=== PATIENT | female | born 1975 | race Caucasian/White ===

== ENCOUNTER 2024-07-07 08:29 | Outpatient (CLI) | payer OTHER, SELFPAY ==
--- NOTE | ~2024-07-07 | XR_ITS ---
EXAMINATION: XR toe 4th RT min 2V DATE: 07/07/2024 08:51 INDICATION: Right fourth toe injury. TECHNIQUE: 3 views of right fourth toe were obtained. COMPARISON: None. FINDINGS: There is an avulsion fracture of dorsal base of fourth distal phalanx in near-anatomic alig nment. Joint spaces are normal. IMPRESSION: 1. Avulsion fracture of dorsal base of fourth distal phalanx. Reviewed, dictated and finalized at location A. IC UTILITIES SALES REPRESENTATIVE
--- OUTSIDE RECORDS SUMMARY | 2024-07-07 08:40 | XMS_ITS | Clinical Summary ---
Author Organization [facility] Address [address] [place] [address] Care Team Providers Care Ball Sorter Name Role Phone Unavailable Primary Care Provider Unavailabl e Source Comments [facility],non-owned Affiliates and Associated Physician Practices is amultiple site organization consisting of ambulatory clinics and hospital sitesin [place], [place], [place] and [place]. This disclosure is being madepursuant to the Care Everywhere program and may not contain all information available regarding this patient. Last updated 18.[facility] [employer] Active Problems Problem Noted Date Diagnosed Date Advanced maternal age (AMA) in 014 Choroid plexus cyst 02/21/2014 Supervision of other high-risk 014 Overview (04/08/2015): Family History Medical History Relation Name Comments Blood Clots Father Hypertension Father Congenital Heart defect Other firs t cousin once removed Relation Name Status Comments Father Other Social History Tobacco Use Types Packs/Day Years Used Date Smoking Tobacco: Never Smokeless Tobacco: Never Alcohol Use Standard Drinks/Week Comments No 0 (1 standard drink = 0.6 oz pur e alcohol) Sex and Gender Information Value Date Recorded Sex Assigned at Not on file Gender Identity Not on file Sexual Orientation Not on file Last Filed Vital Signs Vital Sign Reading Time Taken Comments Blood Pressure - - Pulse 76 02/21/2014 5:11 PM CDT Temperature - - Respiratory Rate 16 02/21/2014 5:11 PM CDT Oxygen Saturation - - Inhaled Oxygen Concentration - - Weight - - Height - - Body Mass Index - - Plan of Treatment Health Maintenance Due Date Last Done Comments COLOGUARD (AGES 45-75) - COL ON CA SCREENING 1977 COLON MONITORING 1977 COLONOSCOPY - COLON CA SCREENING 1977 CT COLONOGRAPHY - COLON CA SCREENING 1975 Colorectal Cancer Screening 1975 FIT - COLON CA SCREENING 1977 FLEX SIG - COLON CA SCREENING 1977 LIPID TESTING 1975 MAMMOGRAM 1977 PAP SMEAR 1977 HIV SCREENING 01/25/1992 HEPATITIS C SCREENING 01/20/1995 DTAP/TDAP/TD VACCINES (1 - Tdap) 01/25/1996 HEPATITIS B VACCINE (1 of 3 - 19+ 3-dose series) 01/25/1996 COVID-19 VACCINE (1 - 2023-2 5 season) 2024 INFLUENZA VACCINE (#1) 2024 DEPRESSION SCREENING 06/01/2024 ZOSTER VACCINE (1 of 2) 2027 HIB VACCINE Aged Out No longer eligi ble based on patient's age to complete this topic HPV VACCINE Aged Out No longer eligi ble based on patient's age to complete this topic MENINGOCOCCAL (Group B) VACCINE Aged Out No longer eligible based on patient's age to complete this topic MENINGOCOCCAL VACCINE Aged Out No du gee eligible based on patient's age to complete this topic PNEUMOCOCCAL VACCINE Aged Out No long er eligible based on patient's age to complete this topic
--- OUTSIDE RECORDS SUMMARY | 2024-07-07 08:40 | XMS_ITS | Encounter Summary ---
Author Organization [facility] Facility Care Team Providers Care Dulite Machine Bluer Name Role Phone Kiel Barillas MD Primary Care Provid er Encounter Details Date Type Department Care Team (Latest Contact Info) Description 07/01/2017 Orders Only [facility] CLINCONV ProviderJodi MD [address] [place] [address] Social History Tobacco Use Types Packs/Day Years Used Date Smoking Tobacco: Never Comments Unknown Sex and Gender Information Value Date Recorded Sex Assigned at Not on file Legal Sex Female 12:31 AM MANAGER BACKGROUND Gender Identity Not on file Sexual Orientation Not on file documented as of this encounter Plan of Treatment Not on file documented as of this encounter Procedures Procedure Name Priority Date/Time Associated Diagnosis Comments SCAN - LABS 07/01/2017 12:00 AM MANAGER BACKGROUND documented in this encounter Results * SCAN - LABS (07/01/2017 12:00 AM MANAGER BACKGROUND) Narrative 07/01/2017 12:00 AM MANAGER BACKGROUND Ordered by an unspecified provider. Historical Provider Final Res ult documented in this encounter Visit Diagnoses Not on filedocumented in this encounter Additional Health Concerns Infection Onset Date Last Indicated Resolved Time C. difficile Comment:Backloaded March 20, 2011 06/26/2005 06/26/2005 COVID: Suspected 04/29/2023 04/29/2023 04/29/2023 3:59 PM MANAGER BACKGROUND COVID: Suspected 09/01/2023 09/01/2023 09/01/2023 4:16 PM CDT documented as of this encounter Care Teams Dulite Machine Bluer Relationship Specialty Start Date End Date Kiel Barillas MD [address] [place] [address] PCP - General 06/01/17 documented as of this encounter
--- OUTSIDE RECORDS SUMMARY | 2024-07-07 08:40 | XMS_ITS | Encounter Summary ---
Author Organization [facility] Facility Care Team Providers Care Radial Drill Press Operator Name Role Phone Unknown, Notinfile Primary Care Provider Unavail able Kiel Barillas MD Primary Care Provid er Kiel Barillas MD Primary Care Provid er Encounter Details Date Type Department Care Team (Latest Contact Info) Description 06/14/2015 Orders Only [facility] CLINCONV ProviderJodi MD [address] [place] [address] Social History Tobacco Use Types Packs/Day Years Used Date Smoking Tobacco: Never Comments Unknown Sex and Gender Information Value Date Recorded Sex Assigned at Not on file Legal Sex Female 12:31 AM TRACK REPAIR SUPERVISOR Gender Identity Not on file Sexual Orientation Not on file documented as of this encounter Plan of Treatment Not on file documented as of this encounter Procedures Procedure Name Priority Date/Time Associated Diagnosis Comments SCAN - PATHOLOGY 06/20/2015 12:0 0 AM TRACK REPAIR SUPERVISOR documented in this encounter Results * SCAN - PATHOLOGY (06/20/2015 12:00 AM TRACK REPAIR SUPERVISOR) Narrative 06/20/2015 12:00 AM TRACK REPAIR SUPERVISOR Ordered by an unspecified provider. Historical Provider Final Res ult documented in this encounter Visit Diagnoses Not on filedocumented in this encounter Additional Health Concerns Infection Onset Date Last Indicated Resolved Time C. difficile Comment:Backloaded March 20, 2011 06/26/2005 06/26/2005 COVID: Suspected 04/29/2023 04/29/2023 04/29/2023 3:59 PM TRACK REPAIR SUPERVISOR COVID: Suspected 09/01/2023 09/01/2023 09/01/2023 4:16 PM CDT documented as of this encounter Care Teams Radial Drill Press Operator Relationship Specialty Start Date End Date Unknown, Notinfile PCP - General 02/17/17 02/26/17 Kiel Barillas MD [address] [place] [address] PCP - General 06/01/17 Kiel Barillas MD [address] [place] [address] PCP - General 02/27/17 05/31/17 documented as of this encounter
--- OUTSIDE RECORDS SUMMARY | 2024-07-07 08:40 | XMS_ITS | Referral Summary ---
Author Organization [facility] Address [address] [place] [id number] Care Team Providers Care Inbound Sales Consultant Name Role Phone Kiel Barillas MD Primary Care Provid er Encounters Date Type Department Care Team Description 07/06/2024 Orders Only [address] [phone] Kiel Barillas MD Injury of toe on right foot, initial encounter (Primary Dx) 07/06/[address] [phone] Kiel Barillas MD Symptom Based Call 07/01/2024 2:00 PM RESEARCH AGRICULTURAL ENGINEER - 07/01/2024 11:59 PM RESEARCH AGRICULTURAL ENGINEER Hospital Encounter [facility] Breast Imaging [facility] ([facility]) [address] [place] [id number] Well woman exam Discharge Disposition: Discharge to home or self care 05/05/2024 10:45 AM RESEARCH AGRICULTURAL ENGINEER Office Visit [address] [phone] Kiel Barillas MD Acute non-recurrent frontal sinusitis (Primary Dx); Subacute cough from Last 3 Months Allergies Active Allergy Reactions Criticality Noted Date Comments Hydrocodone-Acetaminophen Rash Medium 01/19/2019 rash Other Itching,Rash Medium 03/16/2020 Itching with epidural Medications hb-tm-leto-FA-Ca carb-vit K 18 mg iron-400 mcg-500 mg tablet Take by mouth Active albuterol HFA (PROVENTIL HFA,VENTOLIN HFA,PROAIR HFA) 90 mcg/actuation inhalerIndication s:Acute cough Inhale 2 puffs every 6 (six) hours as needed for wheezing 1 each 5 3 Active Additional Information Patient not taking.Reported on 05/05/2024 ALPRAZolam (XANAX) 0.5 mg tablet Take 1 tablet (0.5 mg total) by mouth 3 (three) times a day as needed for anxiety 45 tablet [address] (PROTONIX) 40 mg EC tabletIndications :Abdominal pain Take 1 tablet (40 mg total) by mouth 2 (two) times a day for 14 days 28 tablet 4 Active Additional Information Patient not taking.Reported on 05/05/2024 desogestreL-ethin yl estradioL (Isibloom) 0.15-0.03 mg per tabletIndications :Oral contraceptive pill surveillance Take 1 tablet by mouth daily 28 tablet 12 4 Active predniSONE (DELTASONE) 20 mg tabletIndications :Subacute cough,Acute non-recurrent frontal sinusitis TAKE 3 TABLETS BY MOUTH DAILY FOR 5 DAYS 4 Active clarithromycin (BIAXIN) 500 mg tabletIndications :Subacute cough,Acute non-recurrent frontal sinusitis Take 1 tablet (500 mg total) by mouth 2 (two) times a day 20 tablet 1 4 Active Active Problems Problem Noted Date Diagnosed Date Dense breasts 09/16/2021 Oral contraceptive pill surveillance 03/15/2019 Female infertility 10/06/2013 Immunizations Name Administration Dates Next Due Influenza, Quadrivalent, Leilani l Culture-based MDCK, Preservative Free, Antibiotic Free, Intramuscular 03/26/2022,03/15/2020 Influenza, Quadrivalent, Spl it, Intramuscular 04/24/2019 Influenza, Quadrivalent, Spl it, Preservative Free, Intramuscular 04/25/2023,04/19/2021,04/24/2019,03/08 Influenza, Trivalent, Preser vative Free, Intramuscular 02/25/2017,04/12/2015,05/03/2014 Influenza, Unspecified 03/26/2022(Deferr ed: Patient Refused),03/19/2021(Deferred: Patient Refused),04/24/2019 MMR 01/18/2020 Moderna SARS-CoV-2 Monovalen t Vaccination (12+ YRS) 09/04/2020,08/07/2020 Tdap 11/11/2017,05/03/2014 Social History Tobacco Use Types Packs/Day Years Used Date Smoking Tobacco: Never Smokeless Tobacco: Never Tobacco Cessation:Counseling Given: Not Answered Alcohol Use Standard Drinks/Week Comments Not Currently 0 (1 standard drink = 0.6 oz pur e alcohol) AUDIT-C Answer Date Recorded Q1: How often do you have a drink containing alc ohol? 2-4 times a month 09/25/2021 Q2: How many drinks containi ng alcohol do you have on a typical day when you are drinking? 1 or 2 09/25/2021 Q3: How often do you have si x or more drinks on one occasion? Never 09/25/2021 PHQ-2 Answer Date Recorded PHQ-2 Total Score (If total score is 3 or more points, staff should administer the PHQ-9) 0 09/01/2023 Comments No Sex and Gender Information Value Date Recorded Sex Assigned at Not on file Legal Sex Female 12:31 AM RESEARCH AGRICULTURAL ENGINEER Gender Identity Not on file Sexual Orientation Not on file Last Filed Vital Signs Vital Sign Reading Time Taken Comments Blood Pressure 124/82 05/05/2024 10:48 AM RESEARCH AGRICULTURAL ENGINEER Pulse 83 05/05/2024 10:48 AM RESEARCH AGRICULTURAL ENGINEER Temperature 36.9 C (98.4 F) 05/05/2024 10:48 AM RESEARCH AGRICULTURAL ENGINEER Respiratory Rate 20 05/05/2024 10:48 AM RESEARCH AGRICULTURAL ENGINEER Oxygen Saturation 99% 05/05/2024 10:48 AM RESEARCH AGRICULTURAL ENGINEER Inhaled Oxygen Concentration - - Weight 60.3 kg (133 lb) 05/05/2024 10:48 AM RESEARCH AGRICULTURAL ENGINEER Height 170.2 cm (5' 7 ) 05/05/2024 10:48 AM RESEARCH AGRICULTURAL ENGINEER Body Mass Index 20.83 05/05/2024 10:48 AM RESEARCH AGRICULTURAL ENGINEER Plan of Treatment Not on file Procedures Procedure Name Priority Date/Time Associated Diagnosis Comments SCREENING MAMMOGRAM BILATERAL W CARLOS ALBERTO Schedule Routine, Read Routine (OP Routine) 07/01/2024 2:34 PM RESEARCH AGRICULTURAL ENGINEER Well woman exam HIGH RISK HPV DNA DETECTION WITH GENOTYPING Routine 10/19/2023 4:23 PM CDT Well woman exam HEPATITIS C ANTIBODY Routine 05/14/2017 4:31 PM RESEARCH AGRICULTURAL ENGINEER COLONOSCOPY Routine 05/01/2010 from Last 3 Months or Most Recently Relevant to Health Maintenance Results * Screening Mammogram Bilateral W Carlos Alberto (07/01/2024 2:34 PM RESEARCH AGRICULTURAL ENGINEER) Anatomical Region Laterality Modality Breast Bilateral Mammography Narrative 07/04/2024 11:48 AM RESEARCH AGRICULTURAL ENGINEER Mammogram Technique: Bilateral Digital Breast Tomosynthesis, Bilateral C-view 2D Screening mammogram. Views obtained: bilateral craniocaudal and bilateral mediolateral oblique. Computer Aided Detection was performed. Mammogram Findings: The present examination has been compared to prior imaging studies performed at [facility] on 03/13/2022, 03/18/2022 and 05/21/2023. The breasts are heterogeneously dense, which may obscure small masses. There are multiple masses in both breasts. There is no suspicious abnormality in either breast. Impression: There is no mammographic evidence of malignancy. Annual screening mammography is recommended. If supplemental screening is desired, breast MRI would be recommended in this patient with heterogeneously dense breasts. OVERALL FINAL ASSESSMENT: BI-RADS CATEGORY 2: Benign. Procedure Note Tonja Mohan MD - 07/04/2024 Mammogram Technique: Bilateral Digital Breast Tomosynthesis, Bilateral C-view 2D Screening mammogram. Views obtained: bilateral craniocaudal and bilateral mediolateral oblique. Computer Aided Detection was performed. Mammogram Findings: The present examination has been compared to prior imaging studies performed at [facility] on 03/13/2022, 03/18/2022 and 05/21/2023. The breasts are heterogeneously dense, which may obscure small masses. There are multiple masses in both breasts. There is no suspicious abnormality in either breast. Impression: There is no mammographic evidence of malignancy. Annual screening mammography is recommended. If supplemental screeningis desired, breast MRI would be recommended in this patient with heterogeneously dense breasts. OVERALL FINAL ASSESSMENT: BI-RADS CATEGORY 2: Benign. Jeanne Negro MD IMG MAMMO PROCEDURES Shayna l Result * High Risk HPV DNA Detection with Genotyping (Molecular component) (10/19/2023 4:23 PM CDT) HPV HR [address] [facility] Comment:Testing performed by : [facility], [address] [place]., [address] HPV HR 18 Not Detected Not Detected [facility] Comment:Testing performed by : [facility], [address] [place]., [address] HPV HR Non 16/18 Not Detected Not Detected [facility] Comment: Interpretive Data Nucleic acid amplification for detection of high-risk Human Papilloma virus (HPV) is performed by the Javed Kandace 6800 HPV test. This assay specifically detects HPV-16 and HPV-18 genotypes. The following HPV genotypes are detected as high-risk HPV: HPV-31, 33, 35, ,39, 45, 51, 52, 56, 58, 59, 66, and 68. This assay has been approved by the [place] Food and Drug Administration for detection of HPV in cervical specimens collected by a physician using an endocervical brush/spatula or cervical broom and placed in the ThinPrep Pap Test PreservCyt collection containers. The performance characteristics of this test have been verified by the [facility] Molecular Infectious Disease laboratory. Correlate with separately reported cytology results, as applicable. Interpretive data last revised 22 Testing performed by: [facility], [address] [place]., [address] Endocervical 10/19/2023 4:23 PM CDT 10/19/2023 10:51 PM CDT Narrative [facility] - 10/20/2023 6:24 PM CDT Clinical history and diagnosis->screening Testing type->Screening Last menstrual period (date if known)->10/14/23 Jeanne Negro MD LAB BODY FLUIDS AND STOOL S ORDERABLES Final Result Performing Organization Address City/State/[facility] de Phone Number [facility] [address] [facility] Department [place] [address] [facility] * Hepatitis C antibody (05/14/2017 4:31 PM RESEARCH AGRICULTURAL ENGINEER) Hep C Ab NONREACT NONREACTIVE 05/14/2017 8:05 PM RESEARCH AGRICULTURAL ENGINEER [facility] HISTORICAL RESULTS Comment: [employer] using PORTER (chemiluminescent immunoassay) technology. NONREACTIVE: Antibodies to Hepatitis C not detected. This does not exclude early acute Hepatitis C infection, possibility of exposure to Hepatitis C, antibodies below detection limit, or to lack of antibody reactivity to the antigen used in this assay. EQUIVOCAL: Antibodies to Hepatitis C may or may not be present. Sample to be confirmed by real-time PCR method. REACTIVE: Antibodies to Hepatitis C detected. 05/14/2017 4:31 PM RESEARCH AGRICULTURAL ENGINEER 05/14/2017 5:28 PM RESEARCH AGRICULTURAL ENGINEER Hugo Pyle MD LAB MICROBIOLOGY - GENERAL ORDERABLES Final Result Performing Organization Address [facility] de Phone Number [facility] HISTORICAL RESULTS * Colonoscopy (05/01/2010) Anatomical Region Laterality Modality Other Historical Provider ENDOSCOPY PROCEDURES Shayna l Result from Last 3 Months or Most Recently Relevant to Health Maintenance Additional Health Concerns Infection Onset Date Last Indicated C. difficile Comment:Backloaded March 20, 2011 06/26/2005 06/26/2005 Insurance [facility] H[facility]/PPO Address: [address] [address] [place] [address] [facility] HMO/PPO Address: [address] [address] [place] [address] [facility] HMO/PPO Address: [id number] [place] [id number] Care Teams Inbound Sales Consultant Relationship Specialty Start Date End Date Kiel Barillas MD [address] [place] [address] PCP - General 06/01/17
--- OUTSIDE RECORDS SUMMARY | 2024-07-07 08:40 | XMS_ITS | Patient Health Summary ---
Author Organization [facility] Address [address] [place] [address] Care Team Providers Care Player Manager Name Role Phone Unavailable Primary Care Provider Unavailabl e Note from [facility],non-owned Affiliates and Associated Physician Practices is amultiple site organization consisting of ambulatory clinics and hospital sitesin [place], [place], [place] and [place]. This disclosure is being madepursuant to the Care Everywhere program and may not contain all information available regarding this patient. Last updated 18.[facility] Active Problems Problem Noted Date Diagnosed Date Advanced maternal age (AMA) in 014 Choroid plexus cyst 02/21/2014 Supervision of other high-risk 014 Social History Tobacco Use Types Packs/Day Years [...] - - Body Mass Index - - Procedures * SONOGRAM - COMPLETE(Performed 02/21/2014) Performed for Choroid plexus cyst of fetus on ultrasound * CYTOGENETICS PANEL(Performed 09/30/2012) Performed for Molar [ICD-9-CM] * CYTOGENETICS PANEL(Performed 09/30/2012) Performed for Molar [ICD-9-CM] Results * SONOGRAM - COMPLETE (02/21/2014 3:15 PM CDT) Anatomical Region Laterality Modality Other 02/21/2014 3:15 PM CDT Narrative 02/21/2014 5:16 PM CDT [facility] PHONE: FAX: Pat. Name: ALONDRA GEIGER Pat. No: [id number] Study Date: 02/21/2014 3:15pm , Age: 08 1975, 39 Pregnancies: 2, Para 0 LMP: Unknown GA by US: 19w6d GA Selected: 19w4d (From Known E) JOSH: 07/14/2014 Referring MD: HUGO JONES MD Transportation Security Screener: Kim Salinas RDMS ICD9: 659.53, 655.03 CPT4: 55774 Hist/Ind: Advanced maternal age, primigravida Choroid Plexus Cyst MEASUREMENTS & AGE GROWTH EVALUATION Measurement GA Range Srce %for GA Ratios ----- ---- ------- BPD 4.6 cm 20w0d (59g7m-90l8w) Hadl BPD 61% FL/BPD 0.70 HC 16.8 cm 19w3d (79t9g-84s0k) Hadl HC 47% FL/AC 0.22 AC 14.8 cm 20w0d (77g5c-83u9s) Hadl AC 60% HC/AC 1.14 (1.06 - 1.25) FL 3.2 cm 20w1d (47l0q-65h3x) Hadl FL 63% CI 0.77 (0.70 - 0.86) GA for sonogram 19w6d (62e6b-59q8t) Weight Estimate: based on (BPD,HC,AC,FL) Avg Weight: 326 gm (279-374) Hadlock : 0lbs, 11oz Normal: 306 gm (230-383) Hadlock Wt% 62% for 19w4d Heart Rate: 145 bpm CLINICAL SUMMARY Study Number: 1 A dangelo fetus is identified in breech presentation. The measurements today are consistent with appropriate growth for JOSH provided. The JOSH selected is based on prior ultrasound examination. The amniotic fluid volume is within normal limits. The placenta is anterior with no evidence for placenta previa. No major malformations are seen. A choroid plexus cyst is noted on the left. The right choroid plexus appears unremarkable. The likelihood of trisomy 18 with isolated choroid plexus cysts is 13.8 times greater than a priori risk. The patient was advised that ultrasound does not allow detection of all structural or chromosomal abnormalities. Blood was drawn for NIPT after a MFM consult was provided. IMPRESSION: Dangelo IUP at 19w4d Normal amniotic fluid volume. Appropriate growth. Placental location: Anterior, with no evidence for placenta previa No major malformations are seen today within the limitations of ultrasound. There is a left choroid plexus cyst RECOMMEND: Follow up ultrasound in 8 weeks to reassess choroid plexus cyst. and growth Thank you for allowing us the opportunity to care for your patient. Aditya Duarte MD <Electronic Signature> 02/21/2014 05:08pm Provider Unknown M ORDERABLES * CYTOGENETICS PANEL (09/30/2012 6:10 PM CDT) Only the most recent of2 resultswithin the time period is included. Indication for Study Thickened Cystic Heterogeneous EMC / Suspect Molar 10/14/2012 1:03 PM CDT [facility] Results Cytogenetics Analysis of 5 cells and count of 20 cells (4 cells karyotyped, GTL-banding) from maternal stimulated peripheral blood cultures showed a 46,XX chromosome pattern. 10/14/2012 1:03 PM CDT [facility] Interpretation Maternal female chromosome analysis showing 46,XX with no evidence for structural or numerical abnormalities in all cells examined at 550 band resolution. The product of conception specimen is ([id number]) in progress. 10/14/2012 1:03 PM CDT [facility] Client Information [facility] - N # [id number] 10/14/2012 1:03 PM CDT [facility] Other (qualifier value) BLOOD SPECIMEN / Unknown 09/30/2012 6:10 PM CDT 10/01/2012 1:49 PM CDT Hugo Jones MD LAB - PATHOLOGY/CY TOLOGY ORDERABLES [facility] [place] [address]
--- OUTSIDE RECORDS SUMMARY | 2024-07-07 08:40 | XMS_ITS | Encounter Summary ---
Author Organization [facility] Facility Care Team Providers Care Private Client Advisor Name Role Phone Unknown, Notinfile Primary Care Provider Unavail able Kiel Barillas MD Primary Care Provid er Kiel Barillas MD Primary Care Provid er Encounter Details Date Type Department Care Team (Latest Contact Info) Description 11/06/2016 Orders Only [facility] CLINCONV ProviderJodi MD [address] [place] [address] Social History Tobacco Use Types Packs/Day Years Used Date Smoking Tobacco: Never Comments Unknown Sex and Gender Information Value Date Recorded Sex Assigned at Not on file Legal Sex Female 12:31 AM COMPUTER INSTALLATION ENGINEER Gender Identity Not on file Sexual Orientation Not on file documented as of this encounter Plan of Treatment Not on file documented as of this encounter Procedures Procedure Name Priority Date/Time Associated Diagnosis Comments SCAN - PATHOLOGY 11/06/2016 12:0 0 AM CDT PROCEDURE - RESULT 09/23/2016 12 :00 AM CDT documented in this encounter Results * SCAN - PATHOLOGY (11/06/2016 12:00 AM CDT) Narrative 11/06/2016 12:00 AM CDT Ordered by an unspecified provider. Historical Provider Final Res ult * PROCEDURE - RESULT (09/23/2016 12:00 AM CDT) Narrative 09/23/2016 12:00 AM CDT Ordered by an unspecified provider. Historical Provider MD Final Res ult documented in this encounter Visit Diagnoses Not on filedocumented in this encounter Additional Health Concerns Infection Onset Date Last Indicated Resolved Time C. difficile Comment:Backloaded March 20, 2011 06/26/2005 06/26/2005 COVID: Suspected 04/29/2023 04/29/2023 04/29/2023 3:59 PM COMPUTER INSTALLATION ENGINEER COVID: Suspected 09/01/2023 09/01/2023 09/01/2023 4:16 PM CDT documented as of this encounter Care Teams Private Client Advisor Relationship Specialty Start Date End Date Unknown, Notinfile PCP - General 02/17/17 02/26/17 Kiel Barillas MD [address] [place], [place] [phone] PCP - General 06/01/17 Kiel Barillas MD [address] [place], [place] [phone] PCP - General 02/27/17 05/31/17 documented as of this encounter
--- OUTSIDE RECORDS SUMMARY | 2024-07-07 08:40 | XMS_ITS | Referral Summary ---
Author Organization [facility] Address [address] [place] [address] Care Team Providers Care Game Farm Helper Name Role Phone Unavailable Primary Care Provider Unavailabl e Source Comments [facility],non-owned Affiliates and Associated Physician Practices is amultiple site organization consisting of ambulatory clinics and hospital sitesin [place], [place], [place] and [place]. This disclosure is being madepursuant to the Care Everywhere program and may not contain all information available regarding this patient. 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
--- OUTSIDE RECORDS SUMMARY | 2024-07-07 08:41 | XMS_ITS | Encounter Summary ---
Author Organization [facility] Healthcare Address [address] [place] [address] Care Team Providers Care Physical Education Teacher Name Role Phone Kiel Barillas MD Primary Care Provid er Reason for Visit * Reason Onset Date Comments Symptom Based Call 07/06/2024 Encounter Details Date Type Department Care Team ([facility] st Contact Info) Description 07/06/2024 Telephone [facility] Medical [facility] Family Medicine [address] [phone] Kiel Barillas MD [address] [address] Symptom Based Call Social History Tobacco Use Types Packs/Day Years Used Date Smoking Tobacco: Never Smokeless Tobacco: Never Alcohol Use Standard Drinks/Week Comments Not Currently [...] file 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 Order placed and faxed to [facility] at [phone] Pt vu GER CLINICAL APPLICATIONS * Telephone Encounter - Velia Noonan - 07/06/2024 12:18 PM CST Symptom Based Call Chief Complaint(s): Toe Injury Duration: occurred 06/04 What type of symptom(s) is the patient experiencing? Non-Emergent. Is this a new or reoccurring symptom(s)? New What have you tried to help your symptom(s)? Ice, Rest Why was appointment not scheduled? Patient seeking care without an appointment; appointment was offered by . Additional Comments: Patient reports she has pain, swelling, and bruising to her right fourth toe after stubbing it on Thursday. Patient requests an xray order. Patient states she can have imaging performed at [facility]: [address] [place] [address] P: [phone] Does message need to be routed? Yes-Action Needed GER CLINICAL APPLICATIONS documented in this encounter Plan of Treatment Not on file documented as of this encounter Visit Diagnoses Not on filedocumented in this encounter Additional Health Concerns Infection Onset Date Last Indicated Resolved Time C. difficile Comment:Backloaded March 20, 2011 06/26/2005 06/26/2005 documented as of this encounter Care Teams Physical Education Teacher Relationship Specialty Start Date End Date Kiel Barillas MD [address] [place] [address] PCP - General 06/01/17 documented as of this encounter
--- OUTSIDE RECORDS SUMMARY | 2024-07-07 08:41 | XMS_ITS | Encounter Summary ---
Author Organization [facility] Facility Care Team Providers Care Timber Mill Worker Name Role Phone Unknown, Notinfile Primary Care Provider Unavail able Kiel Barillas MD Primary Care Provid er Kiel Barillas MD Primary Care Provid er Encounter Details Date Type Department Care Team (Latest Contact Info) Description 10/15/2012 Orders Only [facility] CLINCONV ProviderJodi MD [address] [place] [address] Social History Tobacco Use Types Packs/Day Years Used Date Smoking Tobacco: Never Assessed Comments Unknown Sex and Gender Information Value Date Recorded Sex Assigned at Not on file 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 Historical Provider Final Res ult documented in this encounter Visit Diagnoses Not on filedocumented in this encounter Additional Health Concerns Infection Onset Date Last Indicated Resolved Time C. difficile Comment:Backloaded March 20, 2011 06/26/2005 06/26/2005 COVID: Suspected 04/29/2023 04/29/2023 04/29/2023 3:59 PM GAGE MAKER COVID: Suspected 09/01/2023 09/01/2023 09/01/2023 4:16 PM CDT documented as of this encounter Care Teams Timber Mill Worker Relationship Specialty Start Date End Date Unknown, Notinfile PCP - General 02/17/17 02/26/17 Kiel Barillas MD [address] [place] [address] PCP - General 06/01/17 Kiel Barillas MD [address] [place] [address] PCP - General 02/27/17 05/31/17 documented as of this encounter
--- OUTSIDE RECORDS SUMMARY | 2024-07-07 08:41 | XMS_ITS | Clinical Summary ---
Author Organization [facility] Address [address] [place] [address] Care Team Providers Care Video Game Programmer Name Role Phone Unavailable Primary Care Provider Unavailabl e Social History Tobacco Use Types Packs/Day Years Used Date Smoking Tobacco: Never Assessed Comments Unknown Sex and Gender Information Value Date Recorded Sex Assigned at Not on file Legal Sex Female 4:36 PM CDT Gender Identity Not on file Sexual Orientation Not on file Plan of Treatment Health Maintenance Due Date Last Done Comments Cervical Cancer Screening Pa p Smear (Age 30 to 64) Every 3 Years 1977 Colorectal Cancer Screening Colonoscopy (10 Years) 1977 Annual Physical 01/25/1980 Hepatitis C 1995 DTaP, Tdap and Td Vaccines ( 1 - Tdap) 01/25/1996 Hepatitis B Vaccines (1 of 3 - 19+ 3-dose series) 01/25/1996 Cervical Cancer Screening Pa p with HPV Testing (Age 30 to 64) Every 5 Years 2007 Cervical Cancer Screening with HPV 2007 Mammogram Screening 2017 COVID-19 Vaccine (2023-2 5 season) 2024 Influenza Adult (#1) 2024 Meningococcal B Vaccine Aged Out No l onger eligible based on patient's age to complete this topic Meningococcal Vaccine Aged Out No du gee eligible based on patient's age to complete this topic Pneumococcal Vaccine: Pediat rics (0 to 5 Years) and At-Risk Patients (6 to 64 Years) Aged Out No longer eligible b ased on patient's age to complete this topic RSV Immunizations Under 20 Months Aged Out No longer eligible based on patient's age to complete this topic
--- OUTSIDE RECORDS SUMMARY | 2024-07-07 08:41 | XMS_ITS | Encounter Summary ---
Author Organization [facility] Healthcare Address [address] [place] [address] Care Team Providers Care Master Tax Advisor Name Role Phone Kiel Barillas MD Primary Care Provid er Reason for Referral * Diagnostic Imaging (Routine) - Closed Specialty Diagnoses / Procedures Referred By Contmaria dolores t Referred To Contact Diagnoses Injury of toe on right foot, initial encounter Procedures XR Toe 4th Digit Right Minimum 2 Views Kiel Barillas MD [address] [place] [address] Phone: tel: fax: External Order Referral ID Status Reason Start Date Expiration Date Visits Re quested Visits Authorized [id number] Closed 07/06/2024 08/05/2025 1 1 CING LATHE OPERATOR Encounter Details Date Type Department Care Team (Late st Contact Info) Description 07/06/2024 Orders Only [facility] Medical Group Family Medicine [address] [phone] Kiel Barillas MD [address] [place], [place] [phone] Injury of toe on right foot, initial encounter (Primary Dx) Social History Tobacco Use Types Packs/Day Years [...] on file Legal Sex Female 12:31 AM POUNCING LATHE OPERATOR Gender Identity Not on file Sexual Orientation Not on file documented as of this encounter Plan of Treatment Scheduled Orders Name Type Priority Associated Diagnoses Orde r Schedule XR Toe 4th Digit Right Minimum 2 Views Imaging Schedule Routine, Read Routine (OP Routine) Injury of toe on right foot, initial encounter Expected: 07/06/2024, Expires: 07/06/2025 documented as of this encounter Visit Diagnoses Diagnosis Injury of toe on right foot, initial encounter- Primary documented in this encounter Additional Health Concerns Infection Onset Date Last Indicated Resolved Time C. difficile Comment:Backloaded March 20, 2011 06/26/2005 06/26/2005 documented as of this encounter Care Teams Master Tax Advisor Relationship Specialty Start Date End Date Kiel Barillas MD [address] [place] [address] PCP - General 06/01/17 documented as of this encounter
--- OUTSIDE RECORDS SUMMARY | 2024-07-07 08:41 | XMS_ITS | Clinical Summary ---
Author Organization [facility] Address [address] [place] [phone] Care Team Providers Care Member Service Representative Name Role Phone Kiel Barillas MD Primary Care Provid er Allergies Active Allergy Reactions Criticality Noted Date Comments Hydrocodone-Acetaminophen Rash Medium 01/19/2019 rash Other Itching,Rash Medium 03/16/2020 Itching with epidural Medications [id number] carb-vit K 18 mg iron-400 mcg-500 mg [...] contraceptive pill surveillance 03/15/2019 Female infertility 10/06/2013 Encounters Date Type Department Care Team Description 07/06/2024 Orders Only [facility] Family Medicine [address] [phone] Kiel Barillas MD Injury of toe on right foot, initial encounter (Primary Dx) 07/06/2024 Telephone [facility] Medicine [address] [place] [phone] Kiel Barillas MD Symptom Based Call 07/01/2024 2:00 PM VOCAL MUSIC INSTRUCTOR - 07/01/2024 11:59 PM VOCAL MUSIC INSTRUCTOR Hospital Encounter [facility] Breast Imaging [facility] ([facility]) [address] [place] [address] Well woman exam Discharge Disposition: Discharge to home or self care 05/05/2024 10:45 AM VOCAL MUSIC INSTRUCTOR Office Visit [address] [phone] Kiel Barillas MD Acute non-recurrent frontal sinusitis (Primary Dx); Subacute cough from Last 3 Months Immunizations Name Administration Dates Next Due Influenza, Quadrivalent, Leilani l Culture-based MDCK, Preservative Free, Antibiotic Free, Intramuscular 03/26/2022,03/15/2020 Influenza, Quadrivalent, Spl it, Intramuscular 04/24/2019 Influenza, Quadrivalent, Spl it, Preservative Free, Intramuscular 04/25/2023,04/19/2021,04/24/2019,03/08 Influenza, Trivalent, Preser vative Free, Intramuscular 02/25/2017,04/12/2015,05/03/2014 Influenza, Unspecified 03/26/2022(Deferr ed: Patient Refused),03/19/2021(Deferred: Patient Refused),04/24/2019 MMR 01/18/2020 Moderna SARS-CoV-2 Monovalen t Vaccination (12+ YRS) 09/04/2020,08/07/2020 Tdap 11/11/2017,05/03/2014 Surgical History Surgery Date Site/Laterality Comments DILATION AND CURETTAGE OF UTERUS x2 CYST REMOVAL left wrist APPENDECTOMY TONSILLECTOMY SINUS SURGERY RECTAL SURGERY GANGLION CYST EXCISION Medical History Medical History Date Comments Supervision of wit h history of infertility with history of in fertility - (Added by TW Conv) Tinnitus Ear problems Family History Medical History Relation Name Comments Hyperlipidemia Father Hypertension Father Heart disease Mother heart attack Breast cancer Neg Hx Relation Name Status Comments Father Mother Social History Tobacco Use Types Packs/Day Years [...] on file Legal Sex Female 12:31 AM VOCAL MUSIC INSTRUCTOR Gender Identity Not on file Sexual Orientation Not on file Obstetrics History Para Term AB IAB SAB Ectopic Multiple Livin g Live Births 4 2 2 0 2 0 2 0 0 2 2 Date Outcome GA Total Labor Labor/2nd/3rd Weight Sex Type Anes PTL Maddi A1 A5 Name Clin Term Term SAB SAB Last Filed Vital Signs Vital Sign Reading Time Taken Comments Blood Pressure 124/82 05/05/2024 10:48 AM VOCAL MUSIC INSTRUCTOR Pulse 83 05/05/2024 10:48 AM VOCAL MUSIC INSTRUCTOR Temperature 36.9 C (98.4 F) 05/05/2024 10:48 AM VOCAL MUSIC INSTRUCTOR Respiratory Rate 20 05/05/2024 10:48 AM VOCAL MUSIC INSTRUCTOR Oxygen Saturation 99% 05/05/2024 10:48 AM VOCAL MUSIC INSTRUCTOR Inhaled Oxygen Concentration - - Weight 60.3 kg (133 lb) 05/05/2024 10:48 AM VOCAL MUSIC INSTRUCTOR Height 170.2 cm (5' 7 ) 05/05/2024 10:48 AM VOCAL MUSIC INSTRUCTOR Body Mass Index 20.83 05/05/2024 10:48 AM VOCAL MUSIC INSTRUCTOR Plan of Treatment Health Maintenance Due Date Last Done Comments Hepatitis B Screening 1995 Colon Cancer Screening-Colonoscopy 05/01/2015 05/01/2010 Covid-19 Vaccine ( season) 2024 04/25/2023, 03/26/2022, 04/19/2021, Additional history exists Influenza Vaccine (#1) 2024 , 03/26/2022, 04/19/2021, Additional history exists Depression Screening 08/31/2024 09/01/2023, 04/29/2023, 03/26/2022, Additional history exists Regular Well Visit/Exam 18-64 10/18/2024 10/19/2023, 10/15/2022, 03/26/2022, Additional history exists Breast Cancer Screening-Mammogram 07/01/2025 07/01/2024, 05/21/2023, 03/18/2022, Additional history exists DTaP/Tdap/Td Vaccine (3 - Td or Tdap) 11/12/2027 11/11/2017, 05/03/2014 Cervical Cancer Screening 10/18/20282023, 10/19/2023, 04/02/2020, Additional history exists Hepatitis C Screening Completed 05/14/2017 Pneumococcal vaccine <65 Aged Out No longer eligible based on patient's age to complete this topic Procedures Procedure Name Priority Date/Time Associated Diagnosis Comments SCREENING MAMMOGRAM BILATERAL W CARLOS ALBERTO Schedule Routine, Read Routine (OP Routine) 07/01/2024 2:34 PM VOCAL MUSIC INSTRUCTOR Well woman exam HIGH RISK HPV DNA DETECTION WITH GENOTYPING Routine 10/19/2023 4:23 PM CDT Well woman exam HEPATITIS C ANTIBODY Routine 05/14/2017 4:31 PM VOCAL MUSIC INSTRUCTOR COLONOSCOPY Routine 05/01/2010 from Last 3 Months or Most Recently Relevant to Health Maintenance Results * Screening Mammogram Bilateral W Carlos Alberto (07/01/2024 2:34 PM VOCAL MUSIC INSTRUCTOR) Anatomical Region Laterality Modality Breast Bilateral Mammography Narrative 07/04/2024 11:48 AM VOCAL MUSIC INSTRUCTOR Mammogram Technique: Bilateral Digital Breast Tomosynthesis, Bilateral C-view 2D Screening mammogram. Views obtained: bilateral craniocaudal and bilateral mediolateral oblique. Computer Aided Detection was performed. Mammogram Findings: The present examination has been compared to prior imaging studies performed at [facility] on 03/13/2022, 03/18/2022 and 05/21/2023. The breasts [...] compared to prior imaging studies performed at [facility] on 03/13/2022, 03/18/2022 and 05/21/2023. The breasts [...] BI-RADS CATEGORY 2: Benign. Jeanne Negro MD [facility] MAMMO PROCEDURES Shayna l Result * High Risk HPV DNA Detection with Genotyping (Molecular component) (10/19/2023 4:23 PM CDT) HPV HR 16 Not Detected Not Detected [facility] Comment:Testing performed by : [facility], [address] [place]., [address] HPV HR 18 Not Detected Not Detected [facility] Comment:Testing performed by : [facility], [address] [place]., [address] HPV HR Non 16/18 Not Detected Not Detected [facility] Comment: Interpretive Data Nucleic acid amplification for [...] this test have been verified by the [facility] Molecular Infectious Disease laboratory. Correlate with separately reported cytology results, as applicable. Interpretive data last revised 22 Testing performed by: [facility], [address] [place]., [address] Endocervical 10/19/2023 4:23 PM CDT 10/19/2023 10:51 PM CDT Narrative [facility] 10/20/2023 6:24 PM CDT Clinical history and diagnosis->screening Testing type->Screening Last menstrual period (date if known)->10/14/23 Jeanne Negro MD LAB BODY FLUIDS AND STOOL S ORDERABLES Final Result [facility] [address] [facility] Department [place] [address] [facility] * Hepatitis C antibody (05/14/2017 4:31 PM VOCAL MUSIC INSTRUCTOR) Hep C Ab NONREACT NONREACTIVE 05/14/2017 8:05 PM VOCAL MUSIC INSTRUCTOR [facility] HISTORICAL RESULTS Comment: Siemens SimpleHoneyaurXP using PORTER (chemiluminescent immunoassay) technology. NONREACTIVE: Antibodies [...] to Hepatitis C detected. 05/14/2017 4:31 PM VOCAL MUSIC INSTRUCTOR 05/14/2017 5:28 PM VOCAL MUSIC INSTRUCTOR Hugo Pyle MD LAB MICROBIOLOGY - GENERAL ORDERABLES Final Result [facility] HISTORICAL RESULTS * Colonoscopy (05/01/2010) Anatomical Region Laterality Modality Other Historical Provider ENDOSCOPY PROCEDURES Shayna l Result from Last 3 Months or Most Recently Relevant to Health Maintenance Additional Health Concerns Infection Onset Date Last Indicated C. difficile Comment:Backloaded March 20, 2011 06/26/2005 06/26/2005 [facility] Care Teams Member Service Representative Relationship Specialty Start Date End Date Kiel Barillas MD [address] [place] [id number] PCP - General 06/01/17
== END 2024-07-07 08:30 | disposition home or self-care (01) ==
LOC: ANHIMG 08:34
PROVIDERS: PCP Family Medicine; Visit Provider Family Medicine
DX: S99.921A Unspecified injury of right foot, initial encounter (principal); S92.531D Displaced fracture of distal phalanx of right lesser toe(s), subsequent encounter for fracture with routine healing; X58.XXXA Exposure to other specified factors, initial encounter
CPT/HCPCS: 73660